=== PATIENT | male | born 1985 | race Caucasian/White ===

== ENCOUNTER 2020-04-11 10:07 | Observation (INO) ==
[2020-04-11] MEDS ORDERED: NORMAL SALINE 1,000 ML IV ONE ×4 (10:40→15:45)
[2020-04-11 10:59] LABS: Hematocrit 46.5 % (42.0-52.0); Hemoglobin 15.1 gm/dL (13.5-18.0); Mean Cell Volume 86.3 fl (78-100); Mean Corpuscular Hgb Conc 32.5 g/dl (32-36); Mean Platelet Volume 9.5 fl (8-11.3); Neutrophil # 9.9 K/mm3 (1.3-6.0); Neutrophil % 64.2 % (42-75.0); Platelet Count 396 K/mm3 (150-450); Red Blood Count 5.39 M/mm3 (4.7-6.0); Red Cell Distribution Width 12.8 % (11.5-14.0); White Blood Count 15.4 K/mm3 (4.0-10.5)
--- NOTE | 2020-04-11 10:59 | ERNOTE ---
Medical Problem HPI - Narrative Date of Service: 04/11/20 - General Chief Complaint: Lower Extremity Pain/ Injury Time Seen by Provider: 04/11/20 10:15 Source: patient Exam Limitations: no limitations - Immun/Allergies/Home Medications Allergies/Adverse Reactions: Allergies No Known Allergies Allergy (Verified 04/11/20 10:11) Home Medications: HOME MEDICATIONS NK [No Home Medication] 05/17/13 [Last Taken Unknown] - Pain Score Pain Score #1 Pain Score: 8 - History of Present History Narrative: Patient is a 34 years old male who present with complaint of left knee pain for 1 week. Patient report that the pain started slowly, was mild at first and has increased in intensity. Patient report that at rest his pain is minimal however if he tried to bear weight his pain is severe. Patient reports taking ibuprofen 200 mg up to 6 times a day which has only mildly helped. Patient denies a known injury. Patient reports working with his knee pain, which he believes aggravated his situation. Patient denies fever, chills, warmth to the knee, wound to the knee, and previous injury in the past. Patient is also found to be tachycardic and attributed to being very anxious about being in the E Date (Duration): 04/11/20 Timing: constant, getting worse Severity: moderate Modifying Factors - (Improves): Present: immobilization, rest Modifying Factors - (Worsens): Present: movement, other - ambulation Review of Systems - Review of Systems Constitutional: Absent: fever, chills, diaphoresis EYE: Absent: blurred vision ENT: Absent: ear pain Respiratory: Absent: shortness of breath Cardiology: Present: palpitations. Absent: chest pain Gastrointestinal/Abdominal: Absent: nausea, vomiting Musculoskeletal: Present: joint pain, joint swelling Skin: Absent: rash Neurological: Present: anxiety Endocrine: Absent: excessive sweating Hematologic/Lymphatic: Absent: easy bruising Psych: Present: anxiety Medical History (Last Reviewed 04/11/20 @ 10:52 by Liat Casillas MD) No pertinent past medical history Surgical History: Surgical History (Last Reviewed 04/11/20 @ 16:02 by Shanita Duong RN) No pertinent past surgical history Family History: Family History (Last Reviewed 04/11/20 @ 16:02 by Shanita Duong RN) Father Cancer Social History: (Last Reviewed 04/11/20 @ 16:02 by Shanita Duong RN) Tobacco: Smoking Status: Light tobacco smoker Alcohol: alcohol intake frequency: holiday/special occasion Substance Use: substance use type: does not use Physical Exam - Physical Exam General Appearance: Present: alert, mild distress Head Exam: Present: normal inspection Eye Exam: Normal inspection: bilateral Ears, Nose, Throat: Present: normal ENT inspection Neck: Present: normal inspection Respiratory: Present: no respiratory distress Cardiovascular/Chest: Present: tachycardia Gastrointestinal/Abdominal: Present: normal bowel sounds Rectal Exam: Present: nontender Extremity Exam: Present: bony tenderness, joint swelling. Absent: calf tenderness, joint redness Neurological Exam: Present: alert, oriented, normal mood/affect Skin Exam: Present: normal color Lymphatic Exam: Present: no adenopathy Progress - Results and Orders Patient's Lab Results:: I have reviewed the patient's lab results. - Vital Signs Patient's Vital Signs:: I have reviewed the patient's vital signs. - EKG EKG #1 EKG: other - sinus tachycardia, possible atrial flutter EKG #2 EKG read: Interp. by me EKG Comments: sinus tachycardia at rate of 132 - X-Ray X-Ray #1 X-Ray: knee Interpretation: Reviewed by me X-ray Comments: no fracture, dislocation, large effusion and swelling seen - CT/Ultrasound CT/Ultrasound Narrative: US doppler venous left knee: no DVT, Khan's cyst seen Procedures Lower Knee Anesthesia: 1% Lidocaine I & D Prep: betadine prep Findings and Actions: purulent drainage large, cultures obtained, gram stain Complications: Pt jennifer procedure well Left Lower Knee Anesthesia: 1% Lidocaine I & D Prep: betadine prep, sterile drapes applied Findings and Actions: purulent drainage large Immediate Post Procedure Note: 50 ml of cloudy serous fluid aspirated Plan - Plan Plan: Patient is a 34 yo male who presented with left knee pain, swelling unable to bear weight. Patient was found to be tachycardic in the 160s and an EKG was read speedily done which shows sinus tachycardia with possible atrial flutter, and IV was started patient was given IV fluid bolus as the report having very dark urine this morning and admits to not hydrated well in the last week stating that due to not being able to ambulate he has not Is hydration well. Patient left knee is not warm and not erythematous however it is slightly swollen and has obvious large effusion under it. Patient denies having trauma or ever I still x-rayed the knee which ruled out fracture or dislocation. Patient labs revealed an elevation of white blood cells at 15.4, ESR at 92, CRP at 27.1, lactic at 2.2, and urine drug screen positive for benzodiazepine and cannabinoid. Patient admitted to using a dose of Xanax from a friend last night as he had not slept for days and wanted to sleep well. And patient admits to occasionally smoking weights. Patient d-dimer was found to be elevated and an ultrasound of the knee revealed a Khan cyst but ruled out DVT. Patient knee was aspirated and 50 cc of cloudy sanguinous fluid was extracted and sent for Gram stain, culture, cell count, glucose, protein, and crystal. Patient had an elevated white blood cell count of 16,000, color was red, appearance was cloudy, there was no crystal glucose and protein were normal and neutrophilic with 22% and lymphocytes 78% patient received a dose of ceftriaxone 1 g IV. After 2 L of fluid patient continued to be tachycardic in the 130s at rest and received 1/3 L of fluid. Repeat EKG shows sinus tachycardia. I discussed the case with Ortho and they recommended admission for IV antibiotic until culture ruled out septic knee. I admitted patient to medicine due to his tachycardia, I discussed the case with Dr. Camilo Fletcher who accepted admission. Following is 3 L of normal saline patient continued to be tachycardic he received a small dose of lorazepam 0.5 mg which improved but did not resolve his tachycardia. Patient was started on IV fluid at 250 mL of normal saline, and Dr. Fletcher will monitor read and treat him accordingly. Patient was admitted to the medical floor on telemetry. Departure Clinical Impression: Tachycardia with heart rate 121-140 beats per minute, Pain and swelling of left knee, Effusion of knee joint, left Septic arthritis of knee, left Qualifiers: Septic arthritis organism: due to unspecified organism Qualified Code(s): M00.9 - Pyogenic arthritis, unspecified Khan cyst Qualifiers: Laterality: left Qualified Code(s): M71.22 - Synovial cyst of popliteal space [Khan], left knee - Departure Disposition: Short Term Hospital Inpatient Condition: Fair
[2020-04-11 11:14] LABS: ALT 42 U/L (19-67); AST 19 U/L (0-48); Albumin * 3.2 gm/dl (3.4-5.0); Alkaline Phosphatase * 89 U/L (50-170); BUN/Creatinine Ratio 14.4 (9.0-21.6); Blood Urea Nitrogen 14 mg/dL (6-23); Ca. Corrected For Albumin 9.5 mg/dL (8.4-10.2); Calcium * 9.2 mg/dL (7.9-10.9); Carbon Dioxide 24.7 mmol/L (24-32.6); Chloride 99 mmol/L (97-106); Glucose * 156 mg/dL (70-110); Magnesium 2.3 mg/dL (1.2-2.8); Potassium 3.7 mmol/L (3.4-4.6); Sodium 137 mmol/L (132-142); TSH * 0.781 uIU/mL (0.358-3.74); Total Protein 8.5 gm/dL (6.2-8.2)
[2020-04-11 11:16] LABS: CRP 27.1 mg/dL (0.0-0.9); Troponin I Less than 0.017 ng/mL (0.00-0.10)
[2020-04-11] MEDS ORDERED: LIDOCAINE HCL 50 ML VIAL IJ ONE (12:06)
[2020-04-11 12:23] LABS: Cocaine Ur Negative (NEGATIVE); Urine Barbiturate Negative (NEGATIVE); Urine Benzodiazepines Positive (NEGATIVE); Urine Opiates Negative (NEGATIVE); Urine PCP Negative (NEGATIVE); Urine THC Positive (NEGATIVE)
[2020-04-11] MEDS ORDERED: cefTRIAXone SODIUM 1,000 MG/100 ML BAG IV ONE (13:17)
[2020-04-11 13:43] LABS: Body Fluid WBC 16024 /uL (0-1000)
[2020-04-11 14:28] LABS: Body Fluid Appearance CLOUDY (CLEAR); Body Fluid Color RED (COLORLESS)
[2020-04-11] MEDS ORDERED: LORazepam 2 MG/ML DISP.SYRIN IV ONE (14:39)
[2020-04-11] MEDS ORDERED: ONDANSETRON HCL/PF 2 MG/ML VIAL IV ONE (14:40)
[2020-04-11] MEDS ORDERED: ACETAMINOPHEN 500 MG TABLET PO PRN (16:25)
[2020-04-11] MEDS ORDERED: HYDROcodone/ACETAMINOPHEN 1 EACH TABLET PO PRN (16:28)
[2020-04-11] MEDS ORDERED: ENOXAPARIN SODIUM 40 MG/0.4 ML SYRG SC SCH (16:30)
[2020-04-11] MEDS: KETOROLAC TROMETHAMINE 30 MG/ML VIAL IV SCH ×2 (16:37→22:08)
--- NOTE | 2020-04-11 16:58 | HP ---
Chief Complaint - Chief Complaint Date of Service: 04/11/20 Time of Service: 16:30 Chief Complaint: painful and swollen left knee. History of Present Illness: Joe roche is a 34-year-old white male who presents with a painful swollen left knee. There is no trauma history. He cannot bear weight because the pain is too intense and he cannot bend the knee without severe pain. He was seen in the emergency room and the knee was aspirated. Cloudy fluid was removed but the Gram stain is negative for bacteria. There is a 16,000 white count present. There were no crystals identified. His heart rate was 167 on arrival. He was given IV fluids and has had about 2-1/2 L. The heart rate has slowed down into the 135-1 39 range. It is sinus tachycardia. He denies any breathing difficulties and denies any chest discomfort. He has not had any previous episodes of this. He is fairly heavily tattooed. Ramirez Rodriguez has seen him and he has communicated with Dr. Haynes. At this time they are planning to take him to the OR tomorrow to scope the knee and wash it out. Ramirez is re-aspirating the knee as I speak. He has received 1 g of Rocephin IV. I have started him on some Toradol and continued the Rocephin. I also started on enoxaparin. His past medical history is otherwise benign. His last tetanus booster was 7 years ago. His urine drug screen was positive for benzodiazepines and for cannabis. He takes no medication on a regular basis. He took a relatives Xanax because of the severe pain which was causing quite a lot of anxiety. He received 1 mg of Ativan in the emergency room but it has not had much effect on the heart rate. Medical History (Last Reviewed 04/11/20 @ 16:02 by Shanita Duong RN) No pertinent past medical history Surgical History: Surgical History (Last Reviewed 04/11/20 @ 16:02 by Shanita Duong RN) No pertinent past surgical history Family History: Family History (Last Reviewed 04/11/20 @ 16:02 by Shanita Duong RN) Father Cancer Social History: (Last Reviewed 04/11/20 @ 16:02 by Shanita Duong RN) Tobacco: Smoking Status: Light tobacco smoker Alcohol: alcohol intake frequency: holiday/special occasion Substance Use: substance use type: does not use Review Of Systems (GEN) - Review of Systems Generalized/Overall Review: Present: Malaise. Absent: Chills, Fever EENTM: Present: No Symptoms Reported Respiratory: Present: No Symptoms Reported Cardiac: Present: Palpitations, Other - Heart racing Abdominal: Present: No Symptoms Reported Genitourinary: Present: No Symptoms Reported Musculoskeletal: Present: Joint Pain - Left knee Neurological: Present: Anxiety Skin: Present: No Symptoms Reported Endocrine: Present: No Symptoms Reported Immunizations: IMMUNIZATION HX Immunizations Up to Date Yes History of Influenza Vaccine No Hx Pneumococcal Vaccination No Allergies/Adverse Reactions: Allergies Allergy/AdvReac Type Severity Reaction Status Date / Time No Known Allergies Allergy Verified 04/11/20 10:11 Home Medications: HOME MEDICATIONS NK [No Home Medication] 05/17/13 [Last Taken Unknown] Exam - Exam Vital Signs: Vital Signs - Last Taken Temp 37.1 C 04/11/20 16:03 Pulse 139 H 04/11/20 16:03 Resp 14 04/11/20 16:03 BP 137/85 04/11/20 16:03 Pulse Ox 97 04/11/20 16:03 Constitutional: Present: Alert, Oriented x3, Cooperative, Well developed, Well nourished, Mild distress ENT Exam: Present: normal ENT inspection, hearing grossly normal, pharynx normal, TMs normal Eye Exam: bilateral eye: normal inspection, PERRL, EOMI Neck: Present: non-tender, full range of motion, supple, normal inspection Back Exam: Present: normal inspection, no CVA tenderness, no vertebral tenderness Breasts: Present: Exam deferred Respiratory: Present: chest non-tender, lungs clear, normal breath sounds, no respiratory distress, no accessory muscle use Cardiovascular/Chest: Present: normal peripheral pulses, no chest tenderness, no edema, no gallop, no JVD, no murmur, tachycardia Peripheral Pulses: carotid (R): 2+, carotid (L): 2+, radial (R): 2+, radial (L): 2+ Abdomen: Present: Normal bowel sounds, soft, nontender, nondistended, no rebound tenderness, no hepatospenomegaly, no masses, obese /Rectal: Present: Exam deferred, External genitalia normal Extremity: Present: normal range of motion - Severe pain except for the left knee. Left knee is swollen, warm to touch, without erythema or ecchymosis, and with pain on palpation and bending of the knee. Severe pain with weightbearing. Skin Exam: Present: normal color, other - Heavily tattooed Lymphatic: Present: no adenopathy Neurologic: Present: copyright clerk II-XII nml as tested, normal cerebellar test, no motor/sensory deficits, alert, normal mood/affect, oriented x 3, abnormal gait - Due to knee pain Appearance: Present: appropriate appearance, appropriate insight, neat, no memory impairment Eye contact: Present: cooperative, good eye contact, normal speech Thoughts: Present: normal thought pattern, no apparent hallucination Diagnostic Studies: Abnormal Lab Results 04/11/20 04/11/20 04/11/20 Range/Units 10:45 10:50 10:50 WBC 15.4 H (4.0-10.5) K/mm3 Immature Gran # (Auto) 0.06 H (0.000-0.0310) K/mm3 Monocytes % 9.6 H (0.0-9) % Neutrophils # 9.9 H (1.3-6.0) K/mm3 Lymphocytes # 3.89 H (1.5-3.5) k/mm3 Monocytes # 1.5 H (0.0-1.0) k/mm3 ESR (0-10) mm/hr D-Dimer 1.03 H (0.19-0.49) ug/mL Anion Gap 17.0 H (6.8-13.8) mmol/L Random Glucose 156 H (70-110) mg/dL Lactic Acid, Venous (0.4-2.0) mmol/L C-Reactive Prot, Quant 27.1 H (0.0-0.9) mg/dL Total Protein 8.5 H (6.2-8.2) gm/dL Albumin 3.2 L (3.4-5.0) gm/dl Fluid WBC (0-1000) /uL Fluid RBC (0-1000) /uL U Benzodiazepines Scrn (NEGATIVE) Urine Marijuana (THC) (NEGATIVE) 04/11/20 04/11/20 04/11/20 Range/Units 10:50 10:50 12:04 WBC (4.0-10.5) K/mm3 Immature Gran # (Auto) (0.000-0.0310) K/mm3 Monocytes % (0.0-9) % Neutrophils # (1.3-6.0) K/mm3 Lymphocytes # (1.5-3.5) k/mm3 Monocytes # (0.0-1.0) k/mm3 ESR 92 H (0-10) mm/hr D-Dimer (0.19-0.49) ug/mL Anion Gap (6.8-13.8) mmol/L Random Glucose (70-110) mg/dL Lactic Acid, Venous 2.2 H* (0.4-2.0) mmol/L C-Reactive Prot, Quant (0.0-0.9) mg/dL Total Protein (6.2-8.2) gm/dL Albumin (3.4-5.0) gm/dl Fluid WBC (0-1000) /uL Fluid RBC (0-1000) /uL U Benzodiazepines Scrn Positive H (NEGATIVE) Urine Marijuana (THC) Positive H (NEGATIVE) 04/11/20 Range/Units 12:45 WBC (4.0-10.5) K/mm3 Immature Gran # (Auto) (0.000-0.0310) K/mm3 Monocytes % (0.0-9) % Neutrophils # (1.3-6.0) K/mm3 Lymphocytes # (1.5-3.5) k/mm3 Monocytes # (0.0-1.0) k/mm3 ESR (0-10) mm/hr D-Dimer (0.19-0.49) ug/mL Anion Gap (6.8-13.8) mmol/L Random Glucose (70-110) mg/dL Lactic Acid, Venous (0.4-2.0) mmol/L C-Reactive Prot, Quant (0.0-0.9) mg/dL Total Protein (6.2-8.2) gm/dL Albumin (3.4-5.0) gm/dl Fluid WBC 07075 H (0-1000) /uL Fluid RBC Greater than 1000.0 H (0-1000) /uL U Benzodiazepines Scrn (NEGATIVE) Urine Marijuana (THC) (NEGATIVE) Microbiology 04/11/20 12:45 Gram Stain - Final Knee - Left Laboratory Results WBC 15.4 K/mm3 (4.0-10.5) H 04/11/20 10:50 RBC 5.39 M/mm3 (4.7-6.0) 04/11/20 10:50 Hgb 15.1 gm/dL (13.5-18.0) 04/11/20 10:50 Hct 46.5 % (42.0-52.0) 04/11/20 10:50 MCV 86.3 fl (78-100) 04/11/20 10:50 MCH 28.0 pg (27-31) 04/11/20 10:50 MCHC 32.5 g/dl (32-36) 04/11/20 10:50 RDW 12.8 % (11.5-14.0) 04/11/20 10:50 Plt Count 396 K/mm3 (150-450) 04/11/20 10:50 MPV 9.5 fl (8-11.3) 04/11/20 10:50 Immature Gran % (Auto) 0.40 % (0.001-0.429) 04/11/20 10:50 Immature Gran # (Auto) 0.06 K/mm3 (0.000-0.0310) H 04/11/20 10:50 Neutrophils % 64.2 % (42-75.0) 04/11/20 10:50 Lymphocytes % 25.3 % (20-51) 04/11/20 10:50 Monocytes % 9.6 % (0.0-9) H 04/11/20 10:50 Eosinophils % 0.2 % (0.0-3.0) 04/11/20 10:50 Basophils % 0.3 % (0.0-1.0) 04/11/20 10:50 Nucleated RBC % 0.0 k/mm3 (0-1) 04/11/20 10:50 Neutrophils # 9.9 K/mm3 (1.3-6.0) H 04/11/20 10:50 Lymphocytes # 3.89 k/mm3 (1.5-3.5) H 04/11/20 10:50 Monocytes # 1.5 k/mm3 (0.0-1.0) H 04/11/20 10:50 Eosinophils # 0.0 k/mm3 (0.0-0.7) 04/11/20 10:50 Absolute Basophils 0.0 k/mm3 (0.0-0.1) 04/11/20 10:50 ESR 92 mm/hr (0-10) H 04/11/20 10:50 D-Dimer 1.03 ug/mL (0.19-0.49) H 04/11/20 10:45 Sodium 137 mmol/L (132-142) 04/11/20 10:50 Plasma Sodium 138 mmol/L (130-142) 04/11/20 10:50 Potassium 3.7 mmol/L (3.4-4.6) 04/11/20 10:50 Chloride 99 mmol/L (97-106) 04/11/20 10:50 Carbon Dioxide 24.7 mmol/L (24-32.6) 04/11/20 10:50 Anion Gap 17.0 mmol/L (6.8-13.8) H 04/11/20 10:50 BUN 14 mg/dL (6-23) 04/11/20 10:50 Creatinine 0.97 mg/dL (0.4-1.4) 04/11/20 10:50 Est GFR (Non-Af Amer) 94 mL/min (60-130) 04/11/20 10:50 BUN/Creatinine Ratio 14.4 (9.0-21.6) 04/11/20 10:50 Random Glucose 156 mg/dL (70-110) H 04/11/20 10:50 Lactic Acid, Venous 1.1 mmol/L (0.4-2.0) 04/11/20 14:20 Calcium 9.2 mg/dL (7.9-10.9) 04/11/20 10:50 Calcium Adj for Albumin 9.5 mg/dL (8.4-10.2) 04/11/20 10:50 Magnesium 2.3 mg/dL (1.2-2.8) 04/11/20 10:50 Total Bilirubin 1.0 mg/dL (0.0-1.1) 04/11/20 10:50 AST 19 U/L (0-48) 04/11/20 10:50 ALT 42 U/L (19-67) 04/11/20 10:50 Alkaline Phosphatase 89 U/L (50-170) 04/11/20 10:50 Troponin I Less than 0.017 ng/mL (0.00-0.10) 04/11/20 10:50 C-Reactive Prot, Quant 27.1 mg/dL (0.0-0.9) H 04/11/20 10:50 Total Protein 8.5 gm/dL (6.2-8.2) H 04/11/20 10:50 Albumin 3.2 gm/dl (3.4-5.0) L 04/11/20 10:50 Procalcitonin 0.05 ng/mL (0.05-0.50) 04/11/20 10:45 TSH 0.781 uIU/mL (0.358-3.74) 04/11/20 10:50 Fluid Color Red (COLORLESS) 04/11/20 12:45 Fluid Appearance Cloudy (CLEAR) 04/11/20 12:45 Fluid WBC 55789 /uL (0-1000) H 04/11/20 12:45 Fluid RBC Greater than 1000.0 /uL (0-1000) H 04/11/20 12:45 Fluid Neutrophils 22 % 04/11/20 12:45 Fluid Lymphocytes 78 % 04/11/20 12:45 Fluid Glucose 117 mg/dL 04/11/20 12:45 Fluid Total Protein 6.0 mg/dL 04/11/20 12:45 Synovial Crystals No crystals seen (NO CRYSTALS) 04/11/20 12:45 Urine Opiates Screen Negative (NEGATIVE) 04/11/20 12:04 Barbiturate Screen Negative (NEGATIVE) 04/11/20 12:04 Ur Phencyclidine Scrn Negative (NEGATIVE) 04/11/20 12:04 Urine Amphetamine Negative (NEGATIVE) 04/11/20 12:04 U Benzodiazepines Scrn Positive (NEGATIVE) H 04/11/20 12:04 Urine Cocaine Screen Negative (NEGATIVE) 04/11/20 12:04 Urine Marijuana (THC) Positive (NEGATIVE) H 04/11/20 12:04 Assessment/Plan - Narrative Narrative: He is admitted to [facility] acute admission. I will monitor his heart rate for another hour and if it does not slow down I will add a beta-geeta to slow him down. Continue Rocephin for now. Toradol 30 mg every 6 hours IV as an anti-inflammatory and to reduce pain Hydrocodone every 4 hours as needed for pain Surgery consultation has been done and the plan is for him to go to surgery tomorrow to have an arthroscopic procedure to washout the knee. - Assessment/Plan (1) Tachycardia with heart rate 121-140 beats per minute Problem: Acute (2) Pain and swelling of left knee Problem: Acute (3) Effusion of knee joint, left Problem: Acute (4) Septic arthritis of knee, left Problem: Acute Qualifiers: Septic arthritis organism: due to unspecified organism Qualified Code(s): M00.9 - Pyogenic arthritis, unspecified (5) Khan cyst Problem: Acute Qualifiers: Laterality: left Qualified Code(s): M71.22 - Synovial cyst of popliteal space [Khan], left knee
[2020-04-11] MEDS ORDERED: METOPROLOL TARTRATE 1 MG/ML AMPUL IV ONE (16:59)
--- NOTE | 2020-04-11 17:10 | CONS ---
[facility] - General Date of Service: 04/11/20 Narrative: Patient reports left knee pain for approximately 1 week. He states he has been trying to live with it and work through it but over the last 24 hours has had progressive increasing pain and swelling in the knee. He reports he decided to come into the emergency department due to the fact that he can no longer bear weight on the knee and due to the severity of pain he was having with trying to move his knee. He reports his mom has been checking his temperature on a regular basis and reports no fevers. He denies any history of IV drug use. Denies any history of any sexually transmitted diseases. He denies any history of trauma to the knee. He was initially evaluated in our emergency department where the physician aspirated the knee and she reports the fluid was turbid at that time. He reports no body aches or chills. Source: patient Exam Limitations: no limitations - History of Present Illness Timing/Duration: 1 week, changing over time Modifying Factors - (Worsens): Reports: movement, other - Weightbearing Associated Symptoms: denies symptoms Allergies/Adverse Reactions: Allergies No Known Allergies Allergy (Verified 04/11/20 10:11) Home Medications: Home Medications Medication Instructions Recorded Last Taken NK [No Home Medication] 05/17/13 Unknown Date of Service: 04/11/20 Procedures Closure of skin and subcutaneous tissue of other sites (05/17/13) Left knee aspiration. Patient was prepped with iodine. I aspirated 20 mL's of a slightly turbid nahomy fluid. Pressure 5 hemostasis and a bandage applied. Medications - Medications Current Medications: Current Medications Enoxaparin Sodium (Lovenox) 40 mg SC Q24H [facility] Stop: 05/11/20 16:31 Last Admin: 04/11/20 16:40 Dose: 40 mg Documented by: Sodium Chloride (Sodium Chloride 0.9%) 1,000 mls @ 250 mls/hr IV .Q4H ONE Stop: 04/11/20 19:44 Last Admin: 04/11/20 16:25 Dose: 250 mls/hr Documented by: Ketorolac Tromethamine (Toradol) 30 mg IV Q6H [facility] Stop: 04/13/20 10:31 Last Admin: 04/11/20 16:37 Dose: 30 mg Documented by: Physical Examination - Exam Narrative: Left knee with large effusion. Initial range of motion he holds his knee flexed about 20 degrees of flexion. He reports severe pain with attempting to fully straighten his knee. He will only let me flex his knee to approximately 40 degrees and resist due to severe pain. The knee is warm to the touch but it is not red. He has no hip pain with range of motion. X-rays reviewed show no acute pathology but noted large effusion. Labs reviewed showing a sed rate of 92, CRP of 27.1 his white blood cell count is 15,400, his aspirate white cell count is 16,024, his vitals show he is afebrile, he has been tachycardic in the emergency department, his Gram stain from the aspirate was negative for bacteria seen, his cultures pending. Vital Signs: Vital Signs - Last Taken Temp 37.1 C 04/11/20 16:03 Pulse 139 H 04/11/20 16:03 Resp 14 04/11/20 16:03 BP 137/85 04/11/20 16:03 Pulse Ox 97 04/11/20 16:03 O2 Oxygen Delivery Method Room Air Constitutional: Present: Alert, Oriented x3, Cooperative ENT Exam: Present: hearing grossly normal - Results and Findings: Lab/Microbiology results last 24 hrs: Abnormal/Pending Laboratory Last 24 HRS 04/11/20 04/11/20 04/11/20 12:45 12:04 10:50 WBC Immature Gran # (Auto) Monocytes % Neutrophils # Lymphocytes # Monocytes # ESR 92 H D-Dimer Anion Gap Random Glucose Lactic Acid, Venous C-Reactive Prot, Quant Total Protein Albumin Fluid WBC 18945 H Fluid RBC Greater than 1000.0 H U Benzodiazepines Scrn Positive H Urine Marijuana (THC) Positive H 04/11/20 04/11/20 04/11/20 10:50 10:50 10:50 WBC 15.4 H Immature Gran # (Auto) 0.06 H Monocytes % 9.6 H Neutrophils # 9.9 H Lymphocytes # 3.89 H Monocytes # 1.5 H ESR D-Dimer Anion Gap 17.0 H Random Glucose 156 H Lactic Acid, Venous 2.2 H* C-Reactive Prot, Quant 27.1 H Total Protein 8.5 H Albumin 3.2 L Fluid WBC Fluid RBC U Benzodiazepines Scrn Urine Marijuana (THC) 04/11/20 10:45 WBC Immature Gran # (Auto) Monocytes % Neutrophils # Lymphocytes # Monocytes # ESR D-Dimer 1.03 H Anion Gap Random Glucose Lactic Acid, Venous C-Reactive Prot, Quant Total Protein Albumin Fluid WBC Fluid RBC U Benzodiazepines Scrn Urine Marijuana (THC) Culture 04/11/20 12:45 Gram Stain - Final Knee - Left - Assessments/Findings (1) Tachycardia with heart rate 121-140 beats per minute Problem: Acute (2) Pain and swelling of left knee Problem: Acute (3) Effusion of knee joint, left Diagnosis(s): At this time Joe is admitted for observation due to his tachycardia as well as his his left knee effusion with labs concerning for infection. At this time his Gram stain was negative from the emergency department but I did repeat an aspiration of his left knee personally that I will send for Gram stain as well as culture and sensitivity as well. He is currently getting Rocephin. I will make him n.p.o. at midnight tonight and reassess him tomorrow a.m. If any positive results in the new aspiration from his Gram stain showing bacteria or culture starts growing bacteria plan will be to proceed with arthroscopic irrigation and debridement. Problem: Acute
[2020-04-12] MEDS: KETOROLAC TROMETHAMINE 30 MG/ML VIAL IV SCH ×2 (03:59→09:49)
[2020-04-12] MEDS ORDERED: METOPROLOL TARTRATE 1 MG/ML AMPUL IV PRN (07:24)
[2020-04-12] MEDS ORDERED: METHYLPREDNISOLONE SOD SUCC/PF 40 MG/ML VIAL IV ONE (10:36)
[2020-04-12] MEDS ORDERED: METOPROLOL TARTRATE 50 MG TABLET PO SCH (10:45)
--- NOTE | 2020-04-12 11:19 | PN ---
Subjective - Date and Time Seen Date: 04/12/20 Time: 11:15 Subjective Narrative: Joe reports he is feeling much better. His pain is improved. He feels he can move his knee better as his pain has decreased. He denies any feelings that he feels ill. He is denying any other joint complaints at this time. He denies any other complaints at this time. Objective - Vitals Vitals: Last Vital Signs Temp 36.3 C 04/12/20 09:47 Pulse 107 H 04/12/20 11:07 Resp 18 04/12/20 09:47 BP 142/87 H 04/12/20 11:07 Pulse Ox 97 04/12/20 09:47 - Abnormal Lab Findings Abnormal Lab Findings: Abnormal Lab Results 04/11/20 04/11/20 04/11/20 Range/Units 10:45 10:50 10:50 ESR (0-10) mm/hr D-Dimer 1.03 H (0.19-0.49) ug/mL Anion Gap 17.0 H (6.8-13.8) mmol/L Random Glucose 156 H (70-110) mg/dL Lactic Acid, Venous 2.2 H* (0.4-2.0) mmol/L C-Reactive Prot, Quant 27.1 H (0.0-0.9) mg/dL Total Protein 8.5 H (6.2-8.2) gm/dL Albumin 3.2 L (3.4-5.0) gm/dl Fluid WBC (0-1000) /uL Fluid RBC (0-1000) /uL U Benzodiazepines Scrn (NEGATIVE) Urine Marijuana (THC) (NEGATIVE) 04/11/20 04/11/20 04/11/20 Range/Units 10:50 12:04 12:45 ESR 92 H (0-10) mm/hr D-Dimer (0.19-0.49) ug/mL Anion Gap (6.8-13.8) mmol/L Random Glucose (70-110) mg/dL Lactic Acid, Venous (0.4-2.0) mmol/L C-Reactive Prot, Quant (0.0-0.9) mg/dL Total Protein (6.2-8.2) gm/dL Albumin (3.4-5.0) gm/dl Fluid WBC 73494 H (0-1000) /uL Fluid RBC Greater than 1000.0 H (0-1000) /uL U Benzodiazepines Scrn Positive H (NEGATIVE) Urine Marijuana (THC) Positive H (NEGATIVE) - Exam Exam Narrative: Left knee with mild to moderate effusion. No erythema. It is less tender to palpation. Range of motion 5 to 90 degrees with less pain. Calf is supple. His second Gram stain showed no bacteria. Both cultures are not growing anything at this point time. He has remained afebrile through his course of stay. His calf is supple. Constitutional: Present: Alert, Oriented x3, Cooperative, No distress ENT Exam: Present: hearing grossly normal Assessment/Plan - Problems/Diagnosis (1) Tachycardia with heart rate 121-140 beats per minute Problem: Acute (2) Pain and swelling of left knee Problem: Acute Narrative: At this time clinically Joe is doing better than he was yesterday. From our standpoint there is no indication at this time for irrigation and debridement of the joint. From an orthopedic standpoint he is okay for discharge. We can follow him on an outpatient basis for recheck next week. Advised if he continues to have effusions we may want to consider getting an MRI for further work-up on an outpatient basis. Anticipate final results of the cultures tomorrow. (3) Effusion of knee joint, left Problem: Acute
--- NOTE | 2020-04-12 13:35 | DS ---
(1) Pain and swelling of left knee Problem: Acute (2) Effusion of knee joint, left Problem: Acute (3) Tachycardia with heart rate 121-140 beats per minute Problem: Acute (4) Septic arthritis of knee, left Problem: Ruled-out Qualifiers: Septic arthritis organism: due to unspecified organism Qualified Code(s): M00.9 - Pyogenic arthritis, unspecified (5) Khan cyst Problem: Acute Qualifiers: Laterality: left Qualified Code(s): M71.22 - Synovial cyst of popliteal space [Khan], left knee (6) Generalized anxiety disorder Problem: Acute (7) Essential hypertension Problem: Acute Date of Discharge:: 04/12/20 Hospital Course: Joe roche is a 34-year-old white male who presents with a painful swollen left knee. There is no trauma history. He cannot bear weight because the pain is too intense and he cannot bend the knee without severe pain. He was seen in the emergency room and the knee was aspirated. Cloudy fluid was removed but the Gram stain is negative for bacteria. There is a 16,000 white count present. There were no crystals identified. His heart rate was 167 on arrival. He was given IV fluids and has had about 2-1/2 L. The heart rate has slowed down into the 135-1 39 range. It is sinus tachycardia. He denies any breathing difficulties and denies any chest discomfort. He has not had any previous e pisodes of this. He is fairly heavily tattooed. Ramirez Rodriguez has seen him and he has communicated with Dr. Haynes. At this time they are planning to take him to the OR tomorrow to scope the knee and wash it out. Ramirez is re-aspirating the knee as I speak. He has received 1 g of Rocephin IV. I have started him on some Toradol and continued the Rocephin. I also started on enoxaparin. His past medical history is otherwise benign. His last tetanus booster was 7 years ago. His urine drug screen was positive for benzodiazepines and for cannabis. He takes no medication on a regular basis. He took a relatives Xanax because of the severe pain which was causing quite a lot of anxiety. He received 1 mg of Ativan in the emergency room but it has not had much effect on the heart rate. Both the emergency room knee aspiration and the one done by Ramirez Rodriguez are negative for bacteria. There is about a 16,000 white count in the synovial fluid will sort of the 50,000 needed to confirm the diagnosis. His lactic acid was barely elevated on admission at 2.2 and with rehydration dropped to 1.1 on the reflex testing. The white count on admission is 15,400 but with an essentially normal differential. The sed rate was high at 92 and the C-reactive protein is elevated as well. The knee aspirate cultures are sterile to this point. He was initially started on Rocephin but it was discontinued once we determined that this was not an infectious process. The chemistries were normal. Random blood sugar was 156 and should be retested when he is no longer under the stress of this inflammatory process or the influence of steroids. At this point he is able to stand and walk. He has crutches and a walker at home. He is on a regular diet and eating well. The tramadol he has received every 6 hours since admission I think is greatly helped the inflammation. It is also given him some pain relief. Hydrocodone was ordered but he has not used any. Physical therapy saw him and ambulated him. They recommended outpatient physical therapy. They also provided a Tubigrip compression knee dressing. The knee pain is gone from a 10 with weightbearing to a 1 this morning. His disposition is improved. Prognosis is good. [id number] for outpatient physical therapy: Physical therapy has seen him in the hospital and recommended outpatient physical therapy for improved pain management, increased flexibility, strengthening. He will benefit from physical therapy by accomplishing those recommended goals. Procedures Performed: see notes below List Procedures: He has had 2 knee aspiration events, 1 of the emergency room and one in his patient care room. Results and Findings: Pending Mircobiology Results 04/11/20 12:53 Blood Blood Culture - Preliminary NO GROWTH 24 HOURS 04/11/20 11:50 Blood Blood Culture - Preliminary NO GROWTH 24 HOURS 04/11/20 16:51 Knee - Left Miscellaneous Culture - Preliminary No Growth 04/11/20 12:45 Synovial Fluid Body Fluid Culture - Preliminary No Growth Lab Pending Results 04/11/20 10:45: D-Dimer 1.03 H 04/11/20 10:45: Procalcitonin 0.05 04/11/20 10:50: WBC 15.4 H, RBC 5.39, Hgb 15.1, Hct 46.5, MCV 86.3, MCH 28.0, MCHC 32.5, RDW 12.8, Plt Count 396, MPV 9.5, Immature Gran % (Auto) 0.40, Immature Gran # (Auto) 0.06 H, Neutrophils % 64.2, Lymphocytes % 25.3, Monocytes % 9.6 H, Eosinophils % 0.2, Basophils % 0.3, Nucleated RBC % 0.0, Neutrophils # 9.9 H, Lymphocytes # 3.89 H, Monocytes # 1.5 H, Eosinophils # 0.0, Absolute Basophils 0.0 04/11/20 10:50: Sodium 137, Plasma Sodium 138, Potassium 3.7, Chloride 99, Carbon Dioxide 24.7, Anion Gap 17.0 H, BUN 14, Creatinine 0.97, Est GFR (Non-Af Amer) 94, BUN/Creatinine Ratio 14.4, Random Glucose 156 H, Calcium 9.2, Calcium Adj for Albumin 9.5, Magnesium 2.3, Total Bilirubin 1.0, AST 19, ALT 42, Alkaline Phosphatase 89, Troponin I Less than 0.017, C-Reactive Prot, Quant 27.1 H, Total Protein 8.5 H, Albumin 3.2 L, TSH 0.781 04/11/20 10:50: Lactic Acid, Venous 2.2 H* 04/11/20 10:50: ESR 92 H 04/11/20 12:04: Urine Opiates Screen Negative, Barbiturate Screen Negative, Ur Phencyclidine Scrn Negative, Urine Amphetamine Negative, U Benzodiazepines Scrn Positive H, Urine Cocaine Screen Negative, Urine Marijuana (THC) Positive H 04/11/20 12:45: Fluid Color Red, Fluid Appearance Cloudy, Fluid WBC 25069 H, Fluid RBC Greater than 1000.0 H, Fluid Neutrophils 22, Fluid Lymphocytes 78 04/11/20 12:45: Fluid Glucose 117, Fluid Total Protein 6.0 04/11/20 12:45: Synovial Crystals No crystals seen 04/11/20 14:20: Lactic Acid, Venous 1.1 Disposition: Home self-care Condition: Fair Face to Face Encounter completed per CMS Guidelines: Yes - For outpatient PT Discharge Activity: Activity as tolerated, Weight bearing Discharge Diet: General/regular food Consultation Done:: Ramirez Chacon Problem Oriented Discharge Instructions to Patient/Family: Knee Effusion, [id number], Sinus Tachycardia Additional Patient Instructions (free text): Follow up in the Orthopedics with Ramirez Rodriguez April 26 at 9:00 a.m. Follow up with Dr. Fletcher April 19 at 2:00 p.m. Complete Home Medications List: Complete Home Medication List: Acetaminophen [Tylenol] 500 mg PO Q4H PRN tablet 04/12/20 Metoprolol Tartrate [Lopressor] 50 mg PO BID #30 tab 04/12/20 predniSONE [Prednisone] 10 mg PO DAILY 5 Days tab 04/12/20 Amb Orders for Discharge: Gram Stain Time Frame: 1 Day, Facility: [facility], Location: Laboratory Forms: Patient Portal Registration
[2020-04-12 14:13] VITALS: BP 142/79
== END 2020-04-12 15:04 | disposition home or self-care (01) | DRG 550 ==
LOC: ER 10:07 → INTOOBSV 15:29 → MS 15:29
PROVIDERS: ADMIT Family Medicine; ATTEND Family Medicine
DX: I10 Essential (primary) hypertension; M25.462 Effusion, left knee; F41.9 Anxiety disorder, unspecified; M00.09 Staphylococcal polyarthritis; F17.210 Nicotine dependence, cigarettes, uncomplicated; R00.0 Tachycardia, unspecified; M71.22 Synovial cyst of popliteal space [Baker], left knee